=== PATIENT | male | born 1990 | race Caucasian/White ===

== ENCOUNTER 2021-05-06 06:19 | Emergency (ER) | payer OTHER ==
[~2021-05-06] VITALS: Ht 177.8 cm; Wt 154.2 kg
[2021-05-06 07:05] LABS: HEMOGLOBIN 14.9 gm/dl (14.0-17.5); RED BLOOD COUNT 4.82 M/UL (4.20-5.50); WHITE BLOOD COUNT 4.7 K/UL (4.5-11.0)
[2021-05-06 07:41] LABS: BUN/CREATININE RATIO 13 (0-10)
== END 2021-05-06 13:00 | disposition home or self-care (01) ==
LOC: ER1 06:19
PROVIDERS: Student in an Organized Health Care Education/Training Program
DX: U07.1 COVID-19 (principal); Z23 Encounter for immunization; J12.82 Pneumonia due to coronavirus disease 2019; I10 Essential (primary) hypertension; Z88.8 Allergy status to other drugs, medicaments and biological substances
CPT/HCPCS: 36415; 71045; 80053; 82550; 82553; 83605; 83690; 83874; 84484; 85025; 85379; 87040; 93005; 99285; J7030; M0243; U0002

== ENCOUNTER → 2022-03-15 | Outpatient (CLI) | payer OTHER | LOC: EXRD 03-10 08:30 | DX: K76.0 Fatty (change of) liver, not elsewhere classified (principal); K82.8 Other specified diseases of gallbladder | CPT/HCPCS: 76705 ==